=== PATIENT | female | born 1970 | race African-American/Black ===

== ENCOUNTER 2022-08-30 18:43 | Emergency (ER) | payer OTHER | END 2022-08-30 23:45 | disposition left against medical advice (07) | LOC: EMS 18:43 | DX: Z53.21 Procedure and treatment not carried out due to patient leaving prior to being seen by health care provider (principal) ==

== ENCOUNTER 2022-10-26 20:08 | Emergency (ER) | payer OTHER ==
[~2022-10-26] VITALS: Ht 162.6 cm; Wt 106.8 kg
[2022-10-26 20:11] VITALS: BP 150/73
[2022-10-26] MEDS ORDERED: PHEN50 PO (20:24)
[2022-10-26] MEDS ORDERED: ACET-66 PO (22:04)
[2022-10-26] MEDS ORDERED: IBUP-2070 PO (22:04)
[2022-10-26] MEDS ORDERED: ONDANSETRON HCL 4 MG TABLET PO ONE (22:15)
== END 2022-10-26 22:10 | disposition home or self-care (01) ==
LOC: EMS 20:35
DX: M79.672 Pain in left foot (principal); M25.562 Pain in left knee; F41.9 Anxiety disorder, unspecified; F32.A Depression, unspecified; R56.9 Unspecified convulsions
CPT/HCPCS: 99284; 73562; 73630; Q0162